=== PATIENT | female | born 2000 ===

== ENCOUNTER 2021-09-03 13:41 | Emergency (ER) | payer SELFPAY ==
--- NOTE | 2021-09-03 18:00 | Emergency Department Report ---
ED Headache HPI - General Chief Complaint: Headache Stated Complaint: NUMBNESS ONE SIDE BODT/HEADACHE - History of Present Illness Initial Comments: 21-year-old female presents to the ED complaining of waking up this morning with a headache with blurry vision. She states that the blurry vision has since resolved but the headache is a current 2 out of 10. Patient states that this was her first time ever having a headache of this type and unable to describe the headache. She states that the headache was [id number] unilateral, weakness to the right side, and nausea. Patient unable to describe the type of pain but states that it was a weird feeling. Patient states that the accident happened approximately 9 hours ago and states she has not eaten or drinking anything since the accident happened. Patient is alert and oriented x3. No acute distress noted. No ill appearance noted. Recent Head Trauma: no recent headache/trauma Associated Symptoms: denies symptoms, nausea/vomiting, vision changes, weakness. denies: confusion, facial pain, fever/chills, loss of consciousness, nasal drainage, seizures, sinus infection Allergies/Adverse Reactions: Allergies No Known Allergies Allergy (Verified 09/03/21 19:06) Home Medications: Ambulatory Orders Ibuprofen [Motrin] 800 mg PO Q8HR PRN 15 Days #30 tablet 09/03/21 ED Review of Systems ROS: Stated complaint: NUMBNESS ONE SIDE BODT/HEADACHE Other details as noted in HPI Constitutional: denies: chills, fever Eyes: denies: eye pain, eye discharge, vision change ENT: denies: ear pain, throat pain Respiratory: denies: cough, shortness of breath, wheezing Cardiovascular: denies: chest pain, palpitations Endocrine: no symptoms reported Gastrointestinal: denies: abdominal pain, nausea, diarrhea Musculoskeletal: denies: back pain, joint swelling, arthralgia Skin: denies: rash, lesions Neurological: headache. denies: weakness, paresthesias Psychiatric: denies: anxiety, depression Hematological/Lymphatic: denies: easy bleeding, easy bruising ED Past Medical Hx - Past Medical History Previous Medical History?: No - Surgical History Past Surgical History?: No - Medications Home Medications: Home Medications Medication Instructions Recorded Confirmed Last Taken Type Ibuprofen [Motrin] 800 mg PO Q8HR PRN 15 Days #30 09/03/21 Unknown Rx tablet ED Physical Exam - General Limitations: No Limitations General appearance: alert, in no apparent distress - Head Head exam: Present: atraumatic, normocephalic - Eye Eye exam: Present: normal appearance - ENT ENT exam: Present: mucous membranes moist - Neck Neck exam: Present: normal inspection - Respiratory Respiratory exam: Present: normal lung sounds bilaterally. Absent: respiratory distress - Cardiovascular Cardiovascular Exam: Present: regular rate, normal rhythm. Absent: systolic murmur, diastolic murmur, rubs, gallop - GI/Abdominal GI/Abdominal exam: Present: soft, normal bowel sounds - Extremities Exam Extremities exam: Present: normal inspection - Back Exam Back exam: Present: normal inspection - Neurological Exam Neurological exam: Present: alert, oriented X3 - Psychiatric Psychiatric exam: Present: normal affect, normal mood - Skin Skin exam: Present: warm, dry, intact, normal color. Absent: rash ED Course Vital Signs 09/03/21 09/03/21 14:49 19:04 Temperature 98.3 F 98.2 F Pulse Rate 89 71 Respiratory 18 18 Rate Blood Pressure 113/75 Blood Pressure 119/85 [Right] O2 Sat by Pulse 100 100 Oximetry ED Medical Decision Making - Lab Data Result diagrams: 09/03/21 17:55 09/03/21 17:55 - Radiology Data [facility] [address] [place] [address] Cat Scan Report Signed Patient: KHARI GAO MR #: [id number] : 2000 Acct:[id number] Age/Sex: 21 / F ADM Date: 09/03/21 Loc: ED Attending Dr: Ordering Physician: RAS MUKHERJEE Date of Service: 09/03/21 Procedure(s): CT head/brain wo con Accession Number(s): [id number] cc: RAS MUKHERJEE CT HEAD WITHOUT CONTRAST INDICATION / CLINICAL INFORMATION: Headache. TECHNIQUE: All CT scans at this location are performed using CT dose reduction for ALARA by means of automated exposure control. COMPARISON: None available. FINDINGS: HEMORRHAGE: No evidence of intracranial hemorrhage or extra-axial fluid collection. EXTRA-AXIAL SPACES: Cortical sulci, sylvian fissures and basilar cisterns have an unremarkable appearance. VENTRICULAR SYSTEM: The third and lateral ventricles are of normal size and configuration. CEREBRAL PARENCHYMA: No areas of abnormal brain parenchymal attenuation are identified. There is no indication of recent infarction. MIDLINE SHIFT OR HERNIATION: There is no mass effect. CEREBELLUM / BRAINSTEM: Brainstem and cerebellum have an unremarkable appearan ce. MIDLINE STRUCTURES:No abnormalities of the pituitary gland or pineal region are identified. INTRACRANIAL VESSELS:No abnormalities are identified on this noncontrast head CT. ORBITS: visualized portions of the orbits have an unremarkable appearance. SOFT TISSUES of HEAD: No significant abnormality. CALVARIUM: Evaluation of bone windows reveals no abnormalities. PARANASAL SINUSES / MASTOID AIR CELLS: Visualized portions of the paranasal sinuses are free from inflammatory mucosal disease. Mastoid air cells are normally pneumatized. ADDITIONAL FINDINGS: None. IMPRESSION: 1. Negative head CT without contrast. Signer Name: Torey Downing MD Signed: 09/03/2021 6:47 PM Workstation Name: [id number] Transcribed By: Dictated By: Torey Downing MD Electronically Authenticated By: Torey Downing MD Signed Date/Time: 09/03/211846 DD/ 45 TD/TT: - Medical Decision Making 21-year-old female presents to the ED complaining of waking up this morning with a headache with blurry vision. She states that the blurry vision has since resolved but the headache is a current 2 out of 10. Patient states that this was her first time ever having a headache of this type and unable to describe the headache. She states that the headache was [id number] unilateral, weakness to the right side, and nausea. Patient unable to describe the type of pain but states that it was a weird feeling. Patient states that the accident happened approximately 9 hours ago and states she has not eaten or drinking anything since the accident happened. Patient is alert and oriented x3. No acute distress noted. No ill appearance noted. Critical care attestation.: If time is entered above; I have spent that time in minutes in the direct care of this critically ill patient, excluding procedure time. ED Disposition Clinical Impression: Headache Qualifiers: Headache type: unspecified Headache chronicity pattern: acute headache Intractability: not intractable Qualified Code(s): R51.9 - Headache, unspecified Disposition: 01 HOME / SELF CARE / HOMELESS Is pt being admited?: No Does the pt Need Aspirin: No Condition: Stable Additional Instructions: Take medication as prescribed Follow-up with neurology Prescriptions: Ibuprofen [Motrin] 800 mg PO Q8HR PRN 15 Days #30 tablet PRN Reason: Pain, Mild (1-3) Referrals: PRIMARY CARE, [Primary Care Provider] - 3-5 Days JEANIE MCCOLLUM MD [Staff Physician] - 3-5 Days Forms: Work/School Release Form(ED)
[2021-09-03 18:18] LABS: Basophils % (Auto) 0.3 % (0.0-1.8); Eosinophils # (Auto) 0.1 K/mm3 (0.0-0.4); Hematocrit 34.4 % (35.5-45.6); Lymphocytes # (Auto) 2.4 K/mm3 (1.2-5.4); Lymphocytes % (Auto) 27.5 % (13.4-35.0); Mean Corpuscular HGB Conc 32 % (32-34); Mean Corpuscular Volume 75 fl (84-94); Monocytes # (Auto) 0.7 K/mm3 (0.0-0.8); Platelet Count 277 K/mm3 (140-440); Red Blood Count 4.56 M/mm3 (3.65-5.03)
[2021-09-03 18:32] LABS: Alanine Aminotransferase 12 units/L (7-56); Albumin 4.5 g/dL (3.9-5); Blood Urea Nitrogen 6 mg/dL (7-17); Calcium 8.4 mg/dL (8.4-10.2); Hemolysis Index 15
[2021-09-03 18:35] LABS: BUN/Creatinine Ratio 15
--- NOTE | 2021-09-03 18:52 | Cat Scan Report ---
CT HEAD WITHOUT CONTRAST INDICATION / CLINICAL INFORMATION: Headache. TECHNIQUE: All CT scans at this location are performed using CT dose reduction for ALARA by means of automated e xposure control. COMPARISON: None available. FINDINGS: HEMORRHAGE: No evidence of intracranial hemorrhage or extra-axial fluid collection. EXTRA-AXIAL SPACES: Cortical sulci, sylvian fissures and basilar cisterns have an unremarkable appear ance. VENTRICULAR SYSTEM: The third and lateral ventricles are of normal size and configuration. CEREBRAL PARENCHYMA: No areas of abnormal brain parenchymal attenuation are identified. There is no i ndication of recent infarction. MIDLINE SHIFT OR HERNIATION: There is no mass effect. CEREBELLUM / BRAINSTEM: Brainstem and cerebellum have an unremarkable appearance. MIDLINE STRUCTURES:No abnormalities of the pituitary gland or pineal region are identified. INTRACRANIAL VESSELS:No abnormalities are identified on this noncontrast head CT. ORBITS: visualized portions of the orbits have an unremarkable appearance. SOFT TISSUES of HEAD: No significant abnormality. CALVARIUM: Evaluation of bone windows reveals no abnormalities. PARANASAL SINUSES / MASTOID AIR CELLS: Visualized portions of the paranasal sinuses are free from inf lammatory mucosal disease. Mastoid air cells are normally pneumatized. ADDITIONAL FINDINGS: None. IMPRESSION: 1. Negative head CT without contrast. Signer Name: Torey Downing MD Signed: 09/03/2021 6:47 PM Workstation Name: [id number]
[2021-09-03 19:06] VITALS: BP 119/85
== END 2021-09-03 19:29 | disposition home or self-care (01) ==
LOC: EDSEX → ED 13:41
DX: R51.9 Headache, unspecified (principal)
CPT/HCPCS: 36415; 70450; 80053; 85025; 99284